=== PATIENT | male | born 1945 | race Caucasian/White ===

== ENCOUNTER 2023-02-21 10:36 | Outpatient (CLI) | payer MEDICARE ==
[~2023-02-21 10:36] MED LIST: ALLO100T PO; FLUT1DIS4 INH; OLME20TA74 PO
[2023-02-21] MEDS ORDERED: LOSA50TA64 PO (12:14)
== END 2023-02-21 23:59 | disposition home or self-care (01) ==
LOC: RAD 10:36
PROVIDERS: ATTEND Family Medicine
DX: G93.89 Other specified disorders of brain (principal); R42 Dizziness and giddiness; I61.8 Other nontraumatic intracerebral hemorrhage; Z86.73 Personal history of transient ischemic attack (TIA), and cerebral infarction without residual deficits
CPT/HCPCS: 70544; 70551

== ENCOUNTER 2023-02-21 11:21 | Emergency (ER) | payer MEDICARE ==
[~2023-02-21] VITALS: Ht 185.4 cm; Wt 84.1 kg
--- NOTE | 2023-02-21 11:34 | NUR ---
JOSHUA JOYCE ATTEMPTING TO GET IV AT THIS TIME. LAB IS AT BEDSIDE.
[2023-02-21 11:46] LABS: BASOPHILS % (AUTO) 0.4 % (0-1); EOSINOPHILS # (AUTO) 0.1 X10'3 (0-0.9); EOSINOPHILS % (AUTO) 1.3 % (0-6); HEMATOCRIT 42.6 % (42.0-52.0); HEMOGLOBIN 14.1 g/dl (14.0-17.9); LYMPHOCYTES # (AUTO) 1.1 X10'3 (1.1-4.8); LYMPHOCYTES % (AUTO) 15.8 % (21-51); MEAN CORPUSCULAR HEMOGLOBIN 29.9 PG (27.0-31.0); MEAN CORPUSCULAR VOLUME 90.6 FL (78-98); MEAN PLATELET VOLUME 7.1 FL (7.4-10.4); MONOCYTES # (AUTO) 0.4 X10'3 (0-0.9); MONOCYTES % (AUTO) 6.3 % (2-12); NEUTROPHILS # (AUTO) 5.4 X10'3 (1.8-7.7); NEUTROPHILS % (AUTO) 76.2 % (42-75); PLATELET COUNT 248 X10'3 (140-440)
[2023-02-21 12:00] LABS: ALANINE AMINOTRANSFERASE 16 U/L (12-78); ALBUMIN 3.6 G/DL (3.4-5.0); ALBUMIN/GLOBULIN RATIO 1.1 (1.1-1.5); ALKALINE PHOSPHATASE 68 IU/L (46-116); ANION GAP 10 (8-16); ASPARTATE AMINO TRANSFERASE 15 U/L (10-37); BILIRUBIN,TOTAL 0.4 MG/DL (0.1-1.0); BLOOD UREA NITROGEN 16 MG/DL (7-18); BUN/CREATININE RATIO 17.2 (10.0-20.0); CALCIUM 8.9 MG/DL (8.5-10.1); CHLORIDE 105 MMOL/L (99-107); CREATININE 0.93 MG/DL (0.60-1.10); GLUCOSE 118 MG/DL (70-104); POTASSIUM 4.1 MMOL/L (3.5-5.1); SODIUM 144 MMOL/L (135-145); TOTAL CARBON DIOXIDE 28.6 MMOL/L (24-32); eGFR 79 ML/MIN
[2023-02-21] MEDS ORDERED: LOSA50TA64 PO (12:14)
[2023-02-21] MEDS ORDERED: esmolol/sodium cl bag 250 ML IV SCH (12:15)
[2023-02-21 12:40] LABS: APTT 28 SECONDS (22-32)
[2023-02-21] MEDS ORDERED: LORazepam 2 mg/ml vial IV ONE (13:20)
[2023-02-21] MEDS ORDERED: labetalol 20mg/4ml (5mg/ml) syringe IV ONE (13:20)
[2023-02-21 14:29] VITALS: BP 140/98
== END 2023-02-21 14:31 | disposition short-term general hospital (02) ==
LOC: ER 11:21
DX: I62.9 Nontraumatic intracranial hemorrhage, unspecified (principal); I10 Essential (primary) hypertension; J44.9 Chronic obstructive pulmonary disease, unspecified
CPT/HCPCS: 36415; 70450; 71045; 80053; 82948; 85025; 85610; 85730; 93005; 96365; 96366; 96375; 99291; J2060; J3490